=== PATIENT | male | born 1995 | race Caucasian/White ===

== ENCOUNTER 2017-02-02 23:50 | Emergency (ER) | payer MEDICAID, OTHER ==
[~2017-02-02] VITALS: Ht 170.2 cm; Wt 70.5 kg
[2017-02-03 00:02] VITALS: Ht 170.2 cm; Wt 70.5 kg
[2017-02-03] MEDS ORDERED: [UNRECOGNIZED DRUG - CODE] OP (01:22)
[2017-02-03] MEDS ORDERED: POLY10DR19 BOTH EYES (01:22)
[2017-02-03] MEDS ORDERED: SODIUM CHLORIDE 0.9% 1L IRRIG IRR SCH (01:30)
[2017-02-03] MEDS ORDERED: FLUORESCEIN STRIP BOTH EYES ONE (01:30)
--- NOTE | 2017-02-03 01:35 | ERD ---
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 Patient does not have any watery eyes, denies any pain, denies any burning sensation, patient denying any vision changes, denies any foreign body sensation in the eye. ROS All systems reviewed and are negative except as per history of present illness. Medications Home Meds Active Scripts Balanced Salt Soln Non-Surg #6 (Eye Wash) 237 Ml Irrig.soln, 237 ML OP ONCE, #1 BOT Prov:PETRA HOOD NP 02/03/17 Polymyxin B Sulfate-TMP* (Polymyxin B-TMP Eye Drops*) 10 Ml Drops, 1 DROP BOTH EYES QID for 7 Days, EA Prov:PETRA HOOD NP 02/03/17 Allergies Allergies: Coded Allergies: No Known Allergy (Unverified , 02/03/17) PMhx/Soc Medical and Surgical Hx: pt denies Medical Hx, pt denies Surgical Hx Hx Alcohol Use: No Hx Substance Use: No Hx Tobacco Use: No Smoking Status: Never smoker FmHx Family History: No coronary disease, No diabetes, No other Physical Exam Vitals Vital Signs Date Time Temp Pulse Resp B/P Pulse Ox O2 Delivery O2 Flow Rate FiO2 02/03/17 00:02 98.5 68 20 133/78 98 Physical Exam GENERAL: The patient is well developed and appropriate for usual state of health, in no apparent distress. HEENT: Atraumatic. Bilateral eyes are PERRL EOM intact. Ears: Normal tympanic membrane, no erythema or bulging. No ear canal swelling. No ear discharge. Nose : normal nasal turbinates, no erythema or swelling. Normal nasal discharge. Throat: oropharynx clear. No tonsillar swelling or tonsillar exudates. No lymphadenopathy. CHEST: Clear to auscultation bilaterally. There are no rales, wheezes or rhonchi. HEART: Regular rate and rhythm. No murmurs, clicks, rubs or gallops. No S3 or S4. ABDOMEN: Soft, nontender and nondistended. Good bowel sounds. No rebound or guarding. No gross peritonitis. No gross organomegaly or masses. No Wolf sign or McBurney point tenderness. BACK: No midline or flank tenderness. EXTREMITIES: Equal pulses bilaterally. There is no peripheral clubbing, cyanosis or edema. No focal swelling or erythema. Full range of motion. Grossly neurovascularly intact. NEURO: Alert and oriented. Cranial nerves 2-12 intact. Motor strength in all 4 extremities with 5/5 strength. Sensation grossly intact. Normal speech and gait. SKIN: There is no apparent rash or petechia. The skin is warm and dry. HEMATOLOGIC AND LYMPHATIC: There is no evidence of excessive bruising or lymphedema. No gross cervical, axillary, or inguinal lymphadenopathy. Results 24 hrs Current Medications Medications (Trade) Dose Ordered Sig/Maddie Route PRN Reason Start Time Stop Time Status Last Admin Dose Admin Sodium Chloride (NS (Irrig)) 1,000 ml ONCE IRR 02/03/17 01:30 02/03/17 01:30 DC Fluorescein Sodium (Xwrtu-O-Rhgpm) 1 strip ONCE ONCE BOTH EYES 02/03/17 01:30 02/03/17 01:31 Patient refused Brandyn lens irrigation, we'll do eye washer home. Procedures/MDM Procedure Note: After obtaining informed consent, the both eyes were stained using fluorescein dye. After staining the eye, A Wood's lamp was used to evaluate the eye. There is no foreign body noted in the eye. No corneal abrasions noted. Patient tolerated procedure well. Medical decision making: Patient's symptoms most likely is consistent more of a conjunctival abrasion, there is uptake in the conjunctiva but there is no corneal abrasion or foreign body noted. No symptoms of any eye emergencies at this time. No symptoms of any vision changes. No symptoms of any corneal abrasion. No foreign body. Prescription was given for Polytrim eyedrops, eye wash, is advised to take medications as prescribed, follow-up with primary care doctor, possibly see information security specialist for further evaluation. Patient is advised to return to emergency department for any worsening symptoms. Departure Diagnosis: Primary Impression: Conjunctival abrasion Encounter type: initial encounter Laterality: unspecified laterality Qualified Code: S05.00XA - Conjunctival abrasion, unspecified laterality, initial encounter Condition: Stable Patient Instructions: Conjunctivitis Caused by Irritation CUISIA,PETRA AVELAR T. ALARM MECHANIC Feb 03, 2017 01:35
== END 2017-02-03 01:30 | disposition home or self-care (01) ==
LOC: FTE 23:50
DX: S05.00XA Injury of conjunctiva and corneal abrasion without foreign body, unspecified eye, initial encounter (principal); X58.XXXA Exposure to other specified factors, initial encounter; Y92.89 Other specified places as the place of occurrence of the external cause
CPT/HCPCS: 99284